=== PATIENT | female | born 1995 | race Caucasian/White ===

== ENCOUNTER 2023-07-29 17:34 | Emergency (ER) | payer OTHER, SELFPAY ==
--- NOTE | 2023-07-29 17:42 | US_ITS ---
The [address] [address] Patient Name: VARINDER BOO MRN: [id number] date: 1995 Sex: F Assigned Patient Location: ED.MAIN Current Patient Location: Accession/Order Number: [id number] Exam Date: 07/29/2023 18:30 Report Date: 07/29/2023 19:41 At the request of: KYLEIGH BECERRA Procedure: US OB transvaginal US PELVIS: OB LESS THAN 14 WEEKS HISTORY: G 3 P 2 AB 0 27 year old female presents for US evaluation. Vaginal bleeding for one day TECHNIQUE: Multiple sonographic images are performed of the pelvis using grayscale, spectral and color Doppler with both transabdominal and transvaginal probes. COMPARISON: None. FINDINGS: Cervix: Closed. 3.2 cm. Gestational Sac: Measures 1.4 cm 5 weeks 5 days. Amniotic fluid: Within normal limits for gestational age. Placenta: Due to early gestational age, the placenta cannot be adequately seen on this exam. Yolk Sac: Visualized. 2.7 mm Pole: Visualized. CRL: 1.2 cm, 7 weeks, 3 days. There is a lucency demonstrated in the [id number]. Although this is incompletely imaged.. Heart Rate: M mode acosta not demonstrate heart tones. Subchorionic Bleed: None. Maternal: Ovaries: Right ovary: TV: Measures 2.1 x 1.3 x 3.0 cm. Anechoic area is seen within the right ovary measuring 1.9 x 1.2 x 1.5 cm. Color Doppler blood flow demonstrated. Left ovary: TV: Measures 2.4 x 2.3 x 2.5 cm. Color Doppler blood flow demonstrated. Free fluid: None. US/US OB transvaginal IMPRESSION: 1. heart tones are not demonstrated in this patient who is gestational age is approximately 7 weeks. Please correlate with patient's quantitative beta hCG 2. Question of a cystic structure within the pole, which is incompletely imaged. 3. Right ovarian corpus luteal cyst. Electronically authenticated by: KARINE GONZALES Date: 07/29/2023 19:41
[2023-07-29 17:56] VITALS: BP 127/82; PULSE 76; RESP 14; TEMP 36.7; O2SAT 99; BMI 23.4
[2023-07-29 18:57] LABS: HCG Quantitative 15673 mIU/mL
--- NOTE | 2023-07-29 19:08 | ED.PREGNANC1 ---
HPI - General Chief complaint: Vaginal Bleeding Stated complaint: Bleeding, under 20-weeks Time Seen by Provider: 07/29/23 17:39 Source: patient and family Mode of arrival: walk-in Limitations: no limitations History of Present Illness HPI Narrative: patient is a 27-year-old female who presents to the emergency department for vaginal bleeding that became heavier this afternoon. She is a A0 at approximately seven weeks of . She is from [place] and saw her INLAYER SILVER yesterday in [place], she states she had an ultrasound that was normal. She states the bleeding began today. She has no significant cramping. No fevers or vomiting. No urinary symptoms. Related Data Previous Rx's Medication Instructions Recorded hydrocodone 5 mg-acetaminophen 325 1 tab PO Q6H PRN pain #12 tabs 07/29/23 mg tablet ondansetron 4 mg disintegrating 4 mg PO Q6H PRN nausea and 07/29/23 tablet vomiting #12 tabs Review of Systems ROS Constitutional Denies: fever or chills Cardiovascular Denies: chest pain Respiratory Denies: shortness of breath Gastrointestinal Denies: abdominal pain, nausea or vomiting Genitourinary Denies: painful urination Musculoskeletal Denies: back pain Integumentary/Breast Denies: rash Hematologic/Lymphatic Denies: easy bruising PFSH PFSH Social History Smoking status: Never smoker Exam Narrative Exam Narrative: Gen.: Awake, alert, in no distress Head: Normocephalic, atraumatic ENT: Moist mucous membranes Respiratory: No respiratory distress Gastrointestinal: Abdomen is soft, nondistended and nontender to palpation Extremities: Moves extremities equally Psych: Normal mood and affect Neuro: No focal neuro deficit Skin: Warm, dry, intact Constitutional Vital Signs, click to edit/add: Last Vital Signs Temp 98.1 F 07/29/23 17:56 Pulse 76 07/29/23 17:56 Resp 14 07/29/23 17:56 BP 127/82 07/29/23 17:56 Pulse Ox 99 07/29/23 17:56 O2 Del Method Room Air 07/29/23 17:56 Course Vital Signs Vital signs: Vital Signs Temperature 98.1 F 07/29/23 17:56 Pulse Rate 76 07/29/23 17:56 Respiratory Rate 14 07/29/23 17:56 Blood Pressure 127/82 07/29/23 17:56 Pulse Oximetry 99 07/29/23 17:56 Oxygen Delivery Method Room Air 07/29/23 17:56 Temperature 98.1 F 07/29/23 17:56 Pulse Rate 76 07/29/23 17:56 Respiratory Rate 14 07/29/23 17:56 Blood Pressure 127/82 07/29/23 17:56 Pulse Oximetry 99 07/29/23 17:56 Oxygen Delivery Method Room Air 07/29/23 17:56 MDM - OB/Uterine Contractions MDM Narrative Medical decision making narrative: quantitative hCG level obtained, patient with B positive blood type. Abdomen is soft and benign and she maintained stable vital signs. Ultrasound transvaginal shows no cardiac activity consistent with miscarriage. Patient given education about expectations, she should follow closely with her IN[facility]ER SIL[facility] and return to the Emergency Room if symptoms change or worsen. She was given a prescription of pain medication as needed and Zofran. Medical Records Attestation: I reviewed the patient's medical records. Lab Data Attestation: I reviewed the patient's lab results. Labs: Lab Results 07/29/23 Range/Units 16:13 HCG, Quant 02333 mIU/mL Blood Type O Positive Imaging Data US - abdomen: Attestation: I have reviewed the pertinent imaging results. Discharge Plan Discharge Chief Complaint: Vaginal Bleeding Clinical Impression: Miscarriage Patient Disposition: Home, Self-Care Time of Disposition Decision: 19:04 Condition: Good Prescriptions / Home Meds: New hydrocodone-acetaminophen 5-325 mg tablet 1 tab PO Q6H PRN (Reason: pain) Qty: 12 0RF ondansetron 4 mg tablet,disintegrating 4 mg PO Q6H PRN (Reason: nausea and vomiting) Qty: 12 0RF Instructions: Miscarriage (ED) Stand Alone Forms: Portal Instructions Referrals: Physician,Non-Staff, MD [Primary Care Provider] - 1 week
[2023-07-29 19:35] LABS: Bilirubin Urine NEGATIVE (NEGATIVE); Blood Urine NEGATIVE (NEGATIVE); Clarity Urine CLEAR (CLEAR); Color Urine LT. YELLOW (YELLOW); Glucose Urine UA NEGATIVE (NEGATIVE); Ketones Urine 15 mg/dL (NEGATIVE); Leukocyte Esterase Urine NEGATIVE (NEGATIVE); Nitrite Urine NEGATIVE (NEGATIVE); Protein Urine NEGATIVE (NEG/TRACE); Urobilinogen Urine 0.2 EU/dL (0.2-1.0)
[2023-07-29 19:41] LABS: Urine Microscopic Indicated NO
== END 2023-07-29 19:25 | disposition home or self-care (01) ==
PROVIDERS: Physician Assistant; Emergency Provider Emergency Medicine
DX: O03.9 Complete or unspecified spontaneous abortion without complication (principal)
CPT/HCPCS: 36415; 76817; 81003; 84702; 86900; 86901; 99285